=== PATIENT | female | born 1960 | race Caucasian/White ===

== ENCOUNTER → 2024-11-11 | Outpatient (CLI) | payer OTHER ==
[~2024-11-11] MED LIST: APAP500 MG PO; ATORVASTATIN CA20 M1 PO; BISACODYL10 MG R; BISOPROLOL FUMA10 MG PO; BUMETANIDE2 MG PO; CARAFATE1 GM PO; CARDIZEM CD360 MG PO; CEFUROXIME AXE500 MG PO; DULOXETINE HCL60 MG PO; FLEET ENEMA 13133 ML R; FLEET MINERAL133 ML R; LEADER LORATADI10 MG PO; LIDOCAINE1 EACH T; LIDOCAINE15 G1 T; MILK OF MA400 MG/5 M PO; MIRALAX119 GM PO; NARCAN INH; NEURONTIN300 MG PO; NYSTATIN CREAM15 GM T; OMNICEF300 MG PO; OXYBUTYNIN5 MG PO; PANTOPRAZOLE SO40 MG PO; SEROQUEL25 MG PO; TUBERCULIN INTRADERM; VITAMIN D325 MCG PO
== END | disposition home or self-care (01) ==
LOC: ORTHO 01:31
PROVIDERS: ATTEND Orthopaedic Surgery
DX: S42.412A Displaced simple supracondylar fracture without intercondylar fracture of left humerus, initial encounter for closed fracture (principal); M25.522 Pain in left elbow; X58.XXXA Exposure to other specified factors, initial encounter; Y93.89 Activity, other specified; Y92.89 Other specified places as the place of occurrence of the external cause; Y99.8 Other external cause status

== ENCOUNTER 2024-12-26 14:19 | Inpatient (IN) | payer OTHER ==
[~2024-12-26] VITALS: Ht 157.5 cm; Wt 53.7 kg
[2024-12-26 14:25] VITALS: BP 127/85
[2024-12-26] MEDS ORDERED: Metoclopramide Hydrochloride 10 MG/2 ML VIAL IV ONE (15:00)
[2024-12-26] MEDS ORDERED: diphenhydrAMINE hydrochloride 50 MG/ML VIAL IV ONE (15:00)
[2024-12-26 15:09] LABS: BASO # 0.1 10*3/uL (0.0-0.1); BASO % 0.8 % (0.0-1.0); EOS # 0.1 10*3/uL (0.0-0.4); EOS % 1.3 % (1.0-4.0); HEMATOCRIT 35.9 % (37.0-47.0); MEAN CELL VOLUME 86.1 fl (81.0-99.0); MEAN CORPUSCULAR HGB 24.7 pg (27.0-31.0); MEAN CORPUSCULAR HGB CONC 28.7 g/dl (33.0-37.0); MEAN PLATELET VOLUME 9.5 fl (9.6-12.3); MONO # 0.5 10*3/uL (0.1-1.0); MONO % 7.3 % (3.0-9.0); NEUT # 4.3 10*3/uL (2.3-7.9); NEUT % 69.4 % (47.0-73.0); PLATELET COUNT AUTOMATED 148 10*3/uL (130-400); RED BLOOD COUNT 4.17 10*6/uL (4.10-5.10); RED CELL DISTRI WIDTH 19.2 % (0-14.5); WHITE BLOOD COUNT 6.2 10*3/uL (4.8-10.8)
[2024-12-26] MEDS ORDERED: Metoprolol Tartrate 5 MG/5 ML VIAL IV ONE ×4 (15:30→22:05)
[2024-12-26 15:32] LABS: ALKALINE PHOSPHATASE 93 U/L (46-116); BUN 17 mg/dl (9-23); CHLORIDE 110 mmol/L (98-107); POTASSIUM 4.7 mmol/L (3.4-5.1); SGPT/ALT 11 U/L (5-49); TOTAL PROTEIN 7.2 gm/dL (6.0-8.0)
[2024-12-26 16:23] VITALS: BP 112/73
[2024-12-26 17:24] VITALS: BP 110/76
[2024-12-26] MEDS ORDERED: Ondansetron Hydrochloride 4 MG/2 ML VIAL IV PRN (17:35)
[2024-12-26] MEDS ORDERED: MORPHINE Sulfate 2 MG/ML SYR IV PRN (17:35)
[2024-12-26] MEDS ORDERED: SODIUM CHLORIDE 0.9% 1,000 ML IV ONE (17:40)
[2024-12-26] MEDS ORDERED: Metoprolol Tartrate 25 MG TAB PO ONE ×2 (17:45→22:05)
[2024-12-26] MEDS ORDERED: LEVOFLOXACIN 750 MG TAB PO SCH (18:00)
[2024-12-26 18:30] VITALS: BP 118/83
[2024-12-26 19:04] VITALS: BP 121/84
[2024-12-26] MEDS ORDERED: dilTIAZem Hydrochloride 25 MG/5 ML VIAL IV ONE (19:05)
[2024-12-26 20:59] LABS: BILIRUBIN Negative (Negative); BLOOD 2+ (Negative); CLARITY Turbid (Clear); COLOR Yellow (Yellow); GLUCOSE Negative (Negative); KETONE Trace (Negative); LEUKO ESTERASE 3+ (Negative); NITRITE Negative (Negative); SPECIFIC GRAVITY 1.015 (1.001-1.030); UROBILINOGEN 0.2 E.U./dl (0.0-1.0)
[2024-12-26 21:16] LABS: BACTERIA 2+; WBC TNTC wbc/hpf (0-5)
[2024-12-26] MEDS ORDERED: Enoxaparin Sodium 60 MG/0.6 ML SYR SC SCH (22:00)
[2024-12-26] MEDS ORDERED: SODIUM CHLORIDE 0.9% 500 ML IV ONE (22:05)
[2024-12-26] MEDS ORDERED: CRANBERRY400 M2 PO (22:07)
[2024-12-26] MEDS ORDERED: FLORASTOR250 MG PO (22:08)
[2024-12-26] MEDS ORDERED: NEURONTIN100 MG PO (22:10)
[2024-12-26] MEDS ORDERED: Motrin,Rufen800 MG PO (22:11)
[2024-12-26] MEDS ORDERED: MAGOX 400400 MG PO (22:12)
[2024-12-26] MEDS ORDERED: MELATONIN5 M1 PO (22:12)
[2024-12-26] MEDS ORDERED: PYRIDIUM200 M1 PO (22:14)
[2024-12-26] MEDS ORDERED: SENNA8.6 MG PO (22:15)
[2024-12-26] MEDS ORDERED: SUBOXONE 12 MG1 EACH SL (22:16)
[2024-12-26] MEDS ORDERED: SUBOXONE 8 MG-1 EACH SL (22:17)
[2024-12-26 22:39] LABS: BUN 13 mg/dl (9-23); CHLORIDE 112 mmol/L (98-107); FREE T4 0.95 ng/dl (0.89-1.76); POTASSIUM 4.2 mmol/L (3.4-5.1)
[2024-12-27 05:19] LABS: BUN 15 mg/dl (9-23); CHLORIDE 112 mmol/L (98-107); POTASSIUM 4.5 mmol/L (3.4-5.1)
[2024-12-27 08:00] VITALS: BP 149/90
[2024-12-27] MEDS ORDERED: dilTIAZem CD 180 MG CAP PO SCH (08:10)
[2024-12-27] MEDS ORDERED: Polyethylene Glycol 3350 17 GM PACKET PO PRN (09:15)
[2024-12-27] MEDS ORDERED: Melatonin 5 MG TABLET PO PRN (09:15)
[2024-12-27] MEDS ORDERED: IBUPROFEN 800 MG TAB PO PRN (09:15)
[2024-12-27] MEDS ORDERED: Phenazopyridine Hydrochlorid2 100 MG TAB PO PRN (09:15)
[2024-12-27] MEDS ORDERED: Oxybutynin Chloride 5 MG TAB PO PRN (09:15)
[2024-12-27] MEDS ORDERED: Vitamin D 1,000 IU TAB (25 MCG) PO SCH (10:00)
[2024-12-27] MEDS ORDERED: MAGNESIUM OXIDE 400 MG TAB PO SCH (10:00)
[2024-12-27] MEDS ORDERED: BISOPROLOL FUMARATE 5 MG TAB PO SCH (10:00)
[2024-12-27] MEDS ORDERED: LORATADINE 10 MG TAB PO SCH (10:00)
[2024-12-27] MEDS ORDERED: Pantoprazole Sodium 40 MG TAB PO SCH (10:00)
[2024-12-27] MEDS ORDERED: DULoxetine Hydrochloride 60 MG CAP PO SCH (10:00)
[2024-12-27] MEDS ORDERED: BUMETANIDE 1 MG TAB PO SCH (10:00)
[2024-12-27] MEDS ORDERED: Lactobacillus Acidophilus/LA 1 TAB TAB PO SCH (10:00)
[2024-12-27] MEDS ORDERED: BUPRENORPHINE HCL/NALOXONE 8 MG-2 MG SL TABLET SL SCH ×2 (10:00→22:00)
[2024-12-27] MEDS ORDERED: METOPROLOL SUCCINATE XR 50 MG TAB PO ONE (11:05)
[2024-12-27 12:00] VITALS: BP 121/79
[2024-12-27] MEDS ORDERED: Meropenem 1 GM in SODIUM CHLORIDE 0.9% 100 ML IV SCH (12:00)
[2024-12-27] MEDS ORDERED: GABAPENTIN 100 MG CAP PO SCH (14:00)
[2024-12-27 16:00] VITALS: BP 108/79
[2024-12-27] MEDS ORDERED: METOPROLOL SUCCINATE XR 25 MG TAB PO SCH (18:00)
[2024-12-27 20:00] VITALS: BP 112/76
[2024-12-27] MEDS ORDERED: ATORVASTATIN CALCIUM 20 MG TAB PO SCH (22:00)
[2024-12-28] VITALS: BP 106/77
[2024-12-28 05:37] LABS: BUN 14 mg/dl (9-23); CHLORIDE 108 mmol/L (98-107)
[2024-12-28 06:29] LABS: BASO % 0.5 % (0.0-1.0); EOS # 0.2 10*3/uL (0.0-0.4); EOS % 3.8 % (1.0-4.0); HEMATOCRIT 30.1 % (37.0-47.0); MEAN CELL VOLUME 85.3 fl (81.0-99.0); MEAN CORPUSCULAR HGB 24.9 pg (27.0-31.0); MEAN CORPUSCULAR HGB CONC 29.2 g/dl (33.0-37.0); MONO # 0.6 10*3/uL (0.1-1.0); MONO % 10.1 % (3.0-9.0); NEUT # 3.5 10*3/uL (2.3-7.9); NEUT % 58.9 % (47.0-73.0); PLATELET COUNT AUTOMATED 125 10*3/uL (130-400); RED BLOOD COUNT 3.53 10*6/uL (4.10-5.10); RED CELL DISTRI WIDTH 19.3 % (0-14.5)
[2024-12-28 10:20] VITALS: BP 76/44
[2024-12-28] MEDS ORDERED: APIXABAN 5 MG TAB PO SCH (11:05)
[2024-12-28 12:00] VITALS: BP 81/54
[2024-12-28] MEDS ORDERED: SODIUM CHLORIDE 0.9% 1,000 ML IV ONE (13:55)
[2024-12-28] MEDS ORDERED: DILTIAZEM HYDROCHLORIDE PO SCH (14:00)
[2024-12-28 15:05] VITALS: BP 98/67
[2024-12-28 16:00] VITALS: BP 98/67
[2024-12-28] MEDS ORDERED: Metoprolol Tartrate 25 MG TAB PO SCH (16:00)
[2024-12-28 20:00] VITALS: BP 114/74
[2024-12-29] VITALS: BP 112/77
[2024-12-29 08:00] VITALS: BP 99/59
[2024-12-29] MEDS ORDERED: TROLAMINE SALICYLATE T SCH (08:25)
[2024-12-29] MEDS ORDERED: EUCERIN LOTION 120 GM TUBE T SCH (08:25)
[2024-12-29] MEDS ORDERED: LIDOCAINE 4% PATCH T SCH (10:00)
[2024-12-29] MEDS ORDERED: LIDOCAINE 1 EA PATCH T SCH (10:00)
[2024-12-29] MEDS ORDERED: dilTIAZem CD 120 MG CAP PO SCH (10:00)
[2024-12-29] MEDS ORDERED: Vancomycin Hydrochloride 750 MG in SODIUM CHLORIDE 0.9% 250 ML IV SCH (11:00)
[2024-12-29 12:00] VITALS: BP 101/57
[2024-12-29 20:00] VITALS: BP 111/65
[2024-12-29] MEDS ORDERED: CONJUGATED ESTROGENS V SCH (22:00)
[2024-12-30] VITALS: BP 111/60
[2024-12-30 06:18] LABS: BASO % 0.6 % (0.0-1.0); EOS # 0.4 10*3/uL (0.0-0.4); EOS % 7.6 % (1.0-4.0); HEMATOCRIT 27.4 % (37.0-47.0); MEAN CELL VOLUME 86.7 fl (81.0-99.0); MEAN CORPUSCULAR HGB 25.3 pg (27.0-31.0); MEAN CORPUSCULAR HGB CONC 29.2 g/dl (33.0-37.0); MEAN PLATELET VOLUME 10.6 fl (9.6-12.3); MONO # 0.4 10*3/uL (0.1-1.0); MONO % 8.6 % (3.0-9.0); NEUT # 2.3 10*3/uL (2.3-7.9); NEUT % 48.7 % (47.0-73.0); PLATELET COUNT AUTOMATED 118 10*3/uL (130-400); RED BLOOD COUNT 3.16 10*6/uL (4.10-5.10); WHITE BLOOD COUNT 4.8 10*3/uL (4.8-10.8)
[2024-12-30 06:34] LABS: BUN 17 mg/dl (9-23); CHLORIDE 106 mmol/L (98-107); POTASSIUM 3.4 mmol/L (3.4-5.1)
[2024-12-30 08:00] VITALS: BP 107/64
[2024-12-30] MEDS ORDERED: ELIQUIS5 M1 PO (10:38)
[2024-12-30] MEDS ORDERED: NEURONTIN100 MG PO (10:38)
[2024-12-30] MEDS ORDERED: VANCO 750750 MG/150 IV (10:38)
[2024-12-30] MEDS ORDERED: LOPRESSOR25 MG PO (10:38)
[2024-12-30] MEDS ORDERED: SUBOXONE 12 MG1 EACH SL (10:38)
[2024-12-30] MEDS ORDERED: OXYBUTYNIN5 MG PO (10:38)
[2024-12-30] MEDS ORDERED: DILTIAZEM HCL60 MG PO (10:38)
[2024-12-30 15:00] VITALS: BP 148/80
[2024-12-31] MEDS ORDERED: Pantoprazole Sodium 40 MG TAB PO SCH (06:00)
== END 2024-12-30 18:29 | DRG 308 ==
LOC: ED 14:19 → ICCU 17:30 → EDHOLD 17:30 → ICCU 18:20 → 4E 12-28 15:07
PROVIDERS: Internal Medicine; Student in an Organized Health Care Education/Training Program; ADMIT Student in an Organized Health Care Education/Training Program; ATTEND Student in an Organized Health Care Education/Training Program
DX: I48.91 Unspecified atrial fibrillation (principal); G93.41 Metabolic encephalopathy; E87.0 Hyperosmolality and hypernatremia; N39.0 Urinary tract infection, site not specified; Z66 Do not resuscitate; Z51.5 Encounter for palliative care; D64.9 Anemia, unspecified; R73.9 Hyperglycemia, unspecified; F17.220 Nicotine dependence, chewing tobacco, uncomplicated; I25.10 Atherosclerotic heart disease of native coronary artery without angina pectoris; K21.9 Gastro-esophageal reflux disease without esophagitis; I10 Essential (primary) hypertension; J44.9 Chronic obstructive pulmonary disease, unspecified; J30.9 Allergic rhinitis, unspecified; F41.1 Generalized anxiety disorder; M19.90 Unspecified osteoarthritis, unspecified site; F43.25 Adjustment disorder with mixed disturbance of emotions and conduct; G89.4 Chronic pain syndrome; F32.9 Major depressive disorder, single episode, unspecified; E87.8 Other disorders of electrolyte and fluid balance, not elsewhere classified; I95.9 Hypotension, unspecified; Z82.49 Family history of ischemic heart disease and other diseases of the circulatory system; Z88.0 Allergy status to penicillin; Z71.6 Tobacco abuse counseling; Z79.899 Other long term (current) drug therapy

== ENCOUNTER 2025-02-16 12:35 | Observation (INO) | payer OTHER, MEDICAID ==
[2025-02-16] VITALS (16 sets, daily range): BP systolic 95–132; BP diastolic 55–92
[~2025-02-16] VITALS: Ht 162.6 cm; Wt 50.4 kg
[~2025-02-16 12:35] MED LIST changes: +CRANBERRY400 M2 PO; +DILTIAZEM HCL60 MG PO; +ELIQUIS5 M1 PO; +FLORASTOR250 MG PO; +LOPRESSOR25 MG PO; +MAGOX 400400 MG PO; +MELATONIN5 M1 PO; +Motrin,Rufen800 MG PO; +NEURONTIN100 MG PO; +PYRIDIUM200 M1 PO; +SENNA8.6 MG PO; +SUBOXONE 12 MG1 EACH SL; +SUBOXONE 8 MG-1 EACH SL; +VANCO 750750 MG/150 IV
[2025-02-16 13:34] LABS: ACT PARTIAL THROMBO TIME 28.2 SECONDS (20.0-32.1)
[2025-02-16 13:40] LABS: BUN 28 mg/dl (9-23)
[2025-02-16] MEDS ORDERED: BUMETANIDE1 MG PO (15:00)
[2025-02-16] MEDS ORDERED: CARAFATE1 G1 PO (15:00)
[2025-02-16] MEDS ORDERED: OXYBUTYNIN5 MG PO (15:06)
[2025-02-16] MEDS ORDERED: BISACODYL 10 MG SUPP R PRN (16:00)
[2025-02-16] MEDS ORDERED: TEMAZEPAM 15 MG CAP PO PRN (16:00)
[2025-02-16] MEDS ORDERED: BISACODYL 5 MG TAB PO PRN (16:00)
[2025-02-16] MEDS ORDERED: ACETAMINOPHEN 650 MG SUPP R PRN (16:00)
[2025-02-16] MEDS ORDERED: Ondansetron Hydrochloride 4 MG/2 ML VIAL IV PRN (16:00)
[2025-02-16] MEDS ORDERED: ACETAMINOPHEN 325 MG TAB PO PRN (16:00)
[2025-02-16] MEDS ORDERED: POTASSIUM CHLORIDE 20 MEQ TAB PO ONE (16:25)
[2025-02-16] MEDS ORDERED: SODIUM CHLORIDE 0.9% 500 ML IV ONE ×2 (16:38→22:14)
[2025-02-16] MEDS ORDERED: ATORVASTATIN CALCIUM 20 MG TAB PO SCH (22:00)
[2025-02-16] MEDS ORDERED: GABAPENTIN 100 MG CAP PO SCH (22:00)
[2025-02-16] MEDS ORDERED: POTASSIUM CHLO20 ME3 PO (22:38)
[2025-02-16] MEDS ORDERED: BUPRENORPHINE HCL/NALOXONE 8 MG-2 MG SL TABLET SL SCH (23:05)
[2025-02-16] MEDS ORDERED: Polyethylene Glycol 3350 238 GM BOT PO PRN (23:10)
[2025-02-17 00:30] VITALS: BP 150/73
[2025-02-17 01:30] VITALS: BP 120/62
[2025-02-17 06:23] LABS: SGPT/ALT 8 U/L (5-49)
[2025-02-17 06:25] LABS: BUN 18 mg/dl (9-23)
[2025-02-17 06:30] LABS: MEAN CELL VOLUME 80.9 fl (81.0-99.0); MEAN CORPUSCULAR HGB 24.2 pg (27.0-31.0); MEAN PLATELET VOLUME 10.8 fl (9.6-12.3); NUCLEATED RED BLOOD CELL 0.0 % (0.0-0.0); NUCLEATED RED BLOOD CELL 0.0 10*3/uL (0.0-0.0); PLATELET COUNT AUTOMATED 127 10*3/uL (130-400); RED CELL DISTRI WIDTH 16.3 % (0-14.5)
[2025-02-17 06:31] LABS: MANUAL DIFF REFLEX YES
[2025-02-17 07:22] LABS: PLATELET SUFFICIENCY LOW (NORMAL)
[2025-02-17] MEDS ORDERED: POTASSIUM CHLORIDE 20 MEQ TAB PO ONE (07:50)
[2025-02-17] MEDS ORDERED: LIDOCAINE 4% PATCH T PRN (08:15)
[2025-02-17] MEDS ORDERED: POTASSIUM CHLO20 ME3 PO (09:58)
[2025-02-17] MEDS ORDERED: BUPRENORPHINE HCL/NALOXONE 8 MG-2 MG SL TABLET SL SCH (10:00)
[2025-02-17] MEDS ORDERED: LORATADINE 10 MG TAB PO SCH (10:00)
[2025-02-17] MEDS ORDERED: Polyethylene Glycol 3350 17 GM PACKET PO SCH (10:00)
[2025-02-17] MEDS ORDERED: POTASSIUM CHLORIDE 20 MEQ TAB PO SCH (12:00)
== END 2025-02-17 10:50 ==
LOC: ED 12:35 → EDHOLD 15:06 → 4E 19:36
PROVIDERS: Emergency Medicine; ADMIT Student in an Organized Health Care Education/Training Program; ATTEND Student in an Organized Health Care Education/Training Program
DX: D50.9 Iron deficiency anemia, unspecified (principal); E87.6 Hypokalemia; I95.9 Hypotension, unspecified; I10 Essential (primary) hypertension; J44.9 Chronic obstructive pulmonary disease, unspecified; K21.9 Gastro-esophageal reflux disease without esophagitis; F32.9 Major depressive disorder, single episode, unspecified; F41.1 Generalized anxiety disorder; R79.1 Abnormal coagulation profile; Z79.899 Other long term (current) drug therapy

== ENCOUNTER 2025-06-28 03:33 | Emergency (ER) | payer MEDICARE, MEDICAID ==
[~2025-06-28] VITALS: Wt 49.9 kg
[~2025-06-28 03:33] MED LIST changes: +BUMETANIDE1 MG PO; +CARAFATE1 G1 PO; +POTASSIUM CHLO20 ME3 PO
[2025-06-28 04:03] LABS: BASO # 0.0 10*3/uL (0.0-0.1); BASO % 0.5 % (0.0-1.0); EOS # 0.2 10*3/uL (0.0-0.4); EOS % 3.4 % (1.0-4.0); MEAN CELL VOLUME 82.5 fl (81.0-99.0); MEAN CORPUSCULAR HGB 22.8 pg (27.0-31.0); MEAN PLATELET VOLUME 9.0 fl (9.6-12.3); MONO # 0.4 10*3/uL (0.1-1.0); MONO % 7.8 % (3.0-9.0); NEUT # 3.6 10*3/uL (2.3-7.9); NEUT % 65.6 % (47.0-73.0); NUCLEATED RED BLOOD CELL 0.0 % (0.0-0.0); NUCLEATED RED BLOOD CELL 0.0 10*3/uL (0.0-0.0); PLATELET COUNT AUTOMATED 186 10*3/uL (130-400); RED CELL DISTRI WIDTH 31.8 % (0-14.5)
[2025-06-28 04:22] LABS: BUN 24.0 mg/dl (9-23)
[2025-06-28 04:35] LABS: BILIRUBIN Negative (Negative); BLOOD 3+ (Negative); CLARITY Cloudy (Clear); COLOR Red (Yellow); KETONE Negative (Negative); LEUKO ESTERASE 2+ (Negative); NITRITE Negative (Negative); PH 5.0 (4.5-8.0); SPECIFIC GRAVITY 1.010 (1.001-1.030); UROBILINOGEN 0.2 E.U./dl (0.0-1.0)
[2025-06-28 04:44] LABS: BACTERIA 3+; RBC TNTC rbc/hpf (0-2); WBC TNTC wbc/hpf (0-5)
[2025-06-28] MEDS ORDERED: CIPRO500 MG PO (05:05)
[2025-06-28] MEDS ORDERED: Ciprofloxacin Hydrochloride 500 MG TAB PO ONE (05:10)
[2025-06-28] MEDS ORDERED: SEPTDS PO (05:24)
== END 2025-06-28 05:54 | disposition home or self-care (01) ==
LOC: ED 03:33
PROVIDERS: Internal Medicine
DX: N39.0 Urinary tract infection, site not specified (principal); F17.210 Nicotine dependence, cigarettes, uncomplicated; Z53.29 Procedure and treatment not carried out because of patient's decision for other reasons; Z88.0 Allergy status to penicillin; Z79.899 Other long term (current) drug therapy